=== PATIENT | male | born 1960 | race Caucasian/White ===

== ENCOUNTER 2023-12-26 11:27 | Emergency (ER) | payer BC ==
[2023-12-26 11:53] LABS: BASOPHILS PERCENT AUTO 0.4 % (0.0-1.0); EOSINOPHILS PERCENT AUTO 0.1 % (0.0-6.0); HEMATOCRIT 42.7 % (42.0-52.0); HEMOGLOBIN 15.1 gm/dl (14.0-18.0); IMMATURE GRAN ABSOLUTE AUTO 0.02 K/mm3 (0.00-0.05); IMMATURE GRAN PERCENT AUTO 0.2 % (0.0-0.4); LYMPHOCYTES ABSOLUTE AUTO 0.6 K/mm3 (1.0-4.8); MEAN CORPUSCULAR HEMOGLOBIN 31.8 pg (28.0-32.0); MEAN CORPUSCULAR HGB CONC 35.4 g/dl (32.0-36.0); MEAN CORPUSCULAR VOLUME 89.9 fl (83.0-99.0); MEAN PLATELET VOLUME 8.7 fl (9.4-12.4); MONOCYTES ABSOLUTE AUTO 0.7 K/mm3 (0.0-0.8); MONOCYTES PERCENT AUTO 7.7 % (0.0-8.0); NEUTROPHILS ABSOLUTE AUTO 7.9 K/mm3 (1.8-7.7); NEUTROPHILS PERCENT AUTO 85.6 % (41.0-71.0); PLATELET COUNT,PLT 280 K/mm3 (150-400); RED BLOOD CELL COUNT 4.75 M/mm3 (4.52-5.90); WHITE BLOOD CELL COUNT,WBC 9.28 K/mm3 (3.9-11.3)
[2023-12-26] MEDS: Ondansetron 4 MG/2 ML SDV IVPUSH ONE (11:58)
[2023-12-26] MEDS: Sodium Chloride 0.9% 1,000 ML IV SCH (11:58)
[2023-12-26 12:14] LABS: INR 1.13; PROTHROMBIN TIME 11.9 SECONDS (9.7-12.0)
[2023-12-26 12:15] LABS: PTT,PARTIAL THROMBOPLSTIN TIME 23.2 SECONDS (21.7-31.4)
[2023-12-26 12:28] LABS: ANION GAP 14.4 (5-15); BILIRUBIN TOTAL 0.8 mg/dL (0.2-1.0); CALCIUM 9.7 mg/dL (8.5-10.1); CREATININE 0.8 mg/dL (0.7-1.3); EST CRCL DRUG DOSING (CG) 86.07 mL/min; MAGNESIUM 1.6 mg/dL (1.8-2.4); POTASSIUM,K 4.4 mEq/L (3.5-5.1); PROTEIN TOTAL,TP 7.9 g/dl (6.4-8.2)
[2023-12-26] MEDS: Sodium Chloride 0.9% 10 ML Syringe FLUSH ONE (13:02)
[2023-12-26] MEDS: Iopamidol 612 MG/ML 100 ML Bottle IVPUSH ONE (13:02)
[2023-12-26] MEDS: Magnesium Oxide 400 MG Tab PO ONE (13:31)
== END 2023-12-26 15:28 | disposition home or self-care (01) ==
LOC: JD.ED 11:27
DX: R07.89 Other chest pain (principal); J84.10 Pulmonary fibrosis, unspecified; F10.10 Alcohol abuse, uncomplicated; E78.00 Pure hypercholesterolemia, unspecified; I10 Essential (primary) hypertension; Z79.899 Other long term (current) drug therapy; Z86.16 Personal history of COVID-19
CPT/HCPCS: 36415; 71045; 71260; 80053; 80307; 83735; 83880; 84484; 85025; 85610; 85730; 93005; 96361; 96374; 99285; A9270; J2405; J3490; J7030; Q9967